=== PATIENT | female | born 1995 | race African-American/Black ===

== ENCOUNTER 2019-10-15 05:09 | Emergency (ER) | payer SELFPAY ==
[~2019-10-15] VITALS: Ht 149.9 cm; Wt 60.6 kg
[~2019-10-15 05:09] MED LIST: HYDR-3165 PO; NITR100C62 PO; PENI500T PO
--- NOTE | 2019-10-15 05:13 | PHYS DOC ---
Past History Past Medical History: No Pertinent History, UTI, Other Past Medical History Dental pain and dental caries Past Surgical History: , Tubal ligation Smoking: Cigarettes Alcohol Use: Rarely Drug Use: None General Adult HPI: HPI: "...I work up with bad dental pain tonight... I got a dental apt. at [facility] [place], [place] this coming week..I ve been told before to get my teeth pulled.. they usually put me on Keflex..and give me pain meds... Patient is a 24 year old female who presents with above hx and complaints multiple dental caries and gingivitis. Patient seen 2015 for dental pain. Has not completed prior follow up. No trismus. No hx of immunosuppression. No hx travel out side of [place] area. No specific ill contacts. No pointing abscess noted. Pt. has taken Keflex previously. Pt. unsure of her penicillin allergy. Review of Systems: Review of Systems: Constitutional: Denies fever or chills Eyes: Denies change in visual acuity HENT: Denies nasal congestion or sore throat Respiratory: Denies cough or shortness of breath Cardiovascular: Denies chest pain or edema GI: Denies abdominal pain, nausea, vomiting, bloody stools or diarrhea : Denies dysuria Musculoskeletal: Denies back pain or joint pain Integument: Denies rash Neurologic: Denies headache, focal weakness or sensory changes Endocrine: Denies polyuria or polydipsia Lymphatic: Denies swollen glands Psychiatric: Denies depression or anxiety Heart Score: Risk Factors: Risk Factors: DM, Current or recent (<one month) smoker, HTN, HLP, family history of CAD, obesity. Risk Scores: Score 0 - 3: 2.5% MACE over next 6 weeks - Discharge Home Score 4 - 6: 20.3% MACE over next 6 weeks - Admit for Clinical Observation Score 7 - 10: 72.7% MACE over next 6 weeks - Early Invasive Strategies Family History: Family History: Noncontributory Current Medications: Current Meds: See nursing for home meds Allergies: Allergies: Allergies Coded Allergies Type Severity Reaction Last Updated Verified Penicillins Adverse Reaction Unknown 05/26/14 No Physical Exam: PE: Constitutional: Reports acute distress, non-toxic appearance. [] HENT: Normocephalic, atraumatic, bilateral external ears normal, oropharynx moist, no oral exudates, nose normal. Multiple areas of dental decay and gingivitis. No trismus. No pointing abscess. Eyes: PERRLA, EOMI, conjunctiva normal, no discharge. [] Neck: Normal range of motion, no tenderness, supple, no stridor. [] Cardiovascular:Heart rate regular rhythm, no murmur [] Lungs & Thorax: Bilateral breath sounds equal apex with scattered wheezes on auscultation [] Abdomen: Bowel sounds normal, soft, no tenderness, no masses, no pulsatile masses. [] Old surgery scar. Skin: Warm, dry, no erythema, no rash. [] Back: No tenderness, no CVA tenderness. [] Extremities: No tenderness, no cyanosis, no clubbing, ROM intact, no edema. [] Neurologic: Alert and oriented X 3, normal motor function, normal sensory function, no focal deficits noted. [] Psychologic: Affect anxious, judgement normal, mood normal. [] EKG: EKG: [] Radiology/Procedures: Radiology/Procedures: [] Course & Med Decision Making: Course & Med Decision Making Pertinent Labs and Imaging studies reviewed. (See chart for details) Patient must follow-up with dentist./Oral surgeon. Patient to avoid tobacco and polysubstance abuse. Patient take Keflex 500 mg 3 times a day x 10 days.. Recommend patient follow-up at [facility] dental school or oral surgery clinic. Patient will need multiple extractions. Patient take Tylenol and ibuprofen for pain. Would keep current follow up at [facility]. Impression: 1. Dental pain-multiple dental caries teeth decayed into the gums 2. Polysubstance abuse urine drug screen positive for methamphetamine and marijuana 3. Tobacco use [] Dragon Disclaimer: Dragon Disclaimer: This electronic medical record was generated, in whole or in part, using a voice recognition dictation system. Departure Departure: Disposition: 01 HOME/RESIDENCE PRIOR TO ADM Condition: STABLE Referrals: PCP,NO (PCP) Scripts Cephalexin (KEFLEX) 500 Mg Capsule 500 MG PO TID for dental infections for 10 Days, BOTTLE Prov: BOBO HAN MD 10/15/19 Viviane Disclaimer This chart was dictated in whole or in part using Voice Recognition software in a busy, high-work load, and often noisy Emergency Department environment. It may contain unintended and wholly unrecognized errors or omissions. BOBO HAN MD October 15, 2019 05:13
[2019-10-15] MEDS ORDERED: CEPH-264 PO (05:48)
[2019-10-15 05:53] LABS: BILIRUBIN,URINE NEG (NEG); CLARITY,URINE HAZY; COLOR,URINE YELLOW; GLUCOSE,URINE NEG (NEG)
[2019-10-15 05:54] LABS: BACTERIA,URINE MOD /HPF (0-FEW); NITRITE,URINE NEG (NEG); SQUAMOUS EPITHELIAL CELL,UR MOD /LPF; TRICHOMONAS,URINE PRESENT
[2019-10-15] MEDS ORDERED: cefTRIAXone IM 1 GM VIAL IM ONE (06:00)
[2019-10-15] MEDS ORDERED: ACETAMINOPHEN 500 MG TABLET PO ONE (06:00)
[2019-10-15] MEDS ORDERED: KETOROLAC 60 MG/2 ML VIAL. IM ONE (06:00)
[2019-10-15] MEDS ORDERED: cefTRIAXone SODIUM 1 GM VIAL ONE (06:04)
[2019-10-15 06:07] LABS: BARBITURATES NEG (NEG); BENZODIAZEPINES NEG (NEG); CANNABINOIDS POS (NEG); COCAINE NEG (NEG); METHADONE NEG (NEG); OPIATES NEG (NEG); PHENCYCLIDINE NEG (NEG)
[2019-10-15 06:08] LABS: AMPHETAMINE/METHAMPHETAMINE POS (NEG)
[2019-10-15 06:39] VITALS: BP 129/66
== END 2019-10-15 06:40 | disposition home or self-care (01) ==
LOC: ER 05:09
DX: K02.9 Dental caries, unspecified (principal); F19.10 Other psychoactive substance abuse, uncomplicated; F15.10 Other stimulant abuse, uncomplicated; F14.10 Cocaine abuse, uncomplicated; F17.210 Nicotine dependence, cigarettes, uncomplicated; Z88.0 Allergy status to penicillin
CPT/HCPCS: 36415; 80307; 81001; 81025; 87086; 96372; 99284; J0696; J1885